=== PATIENT | male | born 1970 | race Caucasian/White ===

== ENCOUNTER 2017-03-31 14:24 | Emergency (ER) | payer MEDICAID, OTHER ==
[2017-03-31] MEDS ORDERED: HYDROcod/ACETAM 5/325 MG TABLET PO STA (14:56)
[2017-03-31] MEDS ORDERED: DEXAMETHASONE 10 MG/ML VIAL PO STA (14:56)
[2017-03-31] MEDS ORDERED: HYDROcod/ACETAM 5/325 MG TABLET ONE (15:10)
[2017-03-31] MEDS ORDERED: DEXAMETHASONE 10 MG/ML VIAL ONE (15:10)
--- NOTE | 2017-03-31 15:21 | XRAY Preliminary Report ---
Exam: XR Chest 2 View PA/LAT IMPRESSION: Normal 2-view chest radiography. [facility] SITE ID: [id number]
--- NOTE | 2017-03-31 15:24 | XRAY Report ---
EXAM: CHEST RADIOGRAPHY EXAM DATE: 03/31/2017 03:13 PM. CLINICAL HISTORY: Right scapular/neck pain. COMPARISON: None. TECHNIQUE: 2 views. FINDINGS: Lungs/Pleura: No focal opacities evident. No pleural effusion. No pneumothorax. Normal volumes. Mediastinum: Heart and mediastinal contours are unremarkable. Other: None. IMPRESSION: Normal 2-view chest radiography. [facility] Referring Provider Line: [phone] SITE ID: [id number]
[2017-03-31] MEDS ORDERED: HYDROmorphone 1 MG/ML SYRINGE IM STA (16:08)
[2017-03-31] MEDS ORDERED: KETOROLAC 60 MG/2 ML VIAL IM STA (16:08)
[2017-03-31] MEDS ORDERED: KETOROLAC 30 MG/ML VIAL ONE (16:18)
[2017-03-31] MEDS ORDERED: HYDROmorphone 1 MG/ML SYRINGE ONE (16:18)
--- NOTE | 2017-03-31 16:47 | ED Physician Documentation ---
PD HPI BACK PAIN - Stated complaint Stated Complaint: BACK/NECK PX - Chief complaint Chief Complaint: Back Pain - History obtained from History obtained from: Patient - History of Present Illness Timing - onset: How many days ago (10) Timing - duration: Days (10) Timing - details: Gradual onset, Still present (worse the past couple of days, without noted particular injury. No rash nor sores. No URI symptoms. Pain in right lower neck and scapular area on right. Worse with neck and shoulder movement, sometimes with deep breathing.), Waxing and waning Location: Upper, Right Quality: Pain, Sharp. No: Tearing Associated symptoms: No: Fever, Weakness, Numbness Improves with: Rest Worsened by: Movement. No: Palpation Contributing factors: No: Trauma Similar symptoms before: Has not had sx before Recently seen: Clinic (yesterday and Rx Methocarbamol and has continued Ibuprofen.) Review of Systems Constitutional: denies: Fever, Chills Nose: denies: Rhinorrhea / runny nose, Congestion Throat: denies: Sore throat Cardiac: denies: Chest pain / pressure, Palpitations Respiratory: denies: Dyspnea, Cough GI: denies: Nausea, Vomiting, Diarrhea Skin: denies: Rash, Lesions Neurologic: denies: Focal weakness, Numbness PD PAST MEDICAL HISTORY - Past Medical History Past Medical History: Yes Cardiovascular: None Respiratory: None Neuro: None Endocrine/Autoimmune: None Psych: Anxiety Musculoskeletal: None - Past Surgical History Past Surgical History: No - Present Medications Home Medications: Ambulatory Orders Medication Instructions Recorded Confirmed Dexamethasone [Decadron] 4 mg PO DAILY #5 tablet 03/31/17 FLUoxetine [PROzac] 10 mg PO DAILY 03/31/17 03/31/17 HYDROcod/ACETAM 5/325 [Gardner 5/325] 1 tab PO Q6H PRN #20 tablet 03/31/17 Methocarbamol 750 mg PO TID 03/31/17 03/31/17 Ranitidine HCl [Zantac] 50 mg PO PRN PRN 03/31/17 03/31/17 - Allergies Allergies/Adverse Reactions: Allergies Allergy/AdvReac Type Severity Reaction Status Date / Time No Known Drug Allergies Allergy Verified 03/31/17 14:31 - Social History Does the pt smoke?: No Smoking Status: Never smoker Does the pt drink ETOH?: No Does the pt have substance abuse?: No - Immunizations Immunizations are current?: Yes - POLST Patient has POLST: No PD ED PE NORMAL - Vitals Vital signs reviewed: Yes - General General: Alert and oriented X 3, Well developed/nourished - HEENT HEENT: Atraumatic - Neck Neck: Supple, no meningeal sign, No bony TTP, No adenopathy - Cardiac Cardiac: RRR, No murmur - Respiratory Respiratory: Clear bilaterally - Abdomen Abdomen: Soft, Non tender - Back Back: No spinal TTP (pain is scapular upper area but without focal tenderness to palpation, no trigger points. ) - Derm Derm: Normal color, Warm and dry, No rash - Neuro Neuro: Alert and oriented X 3, No motor deficit, No sensory deficit Results - Vitals Vitals: Vital Signs - 24 hr 03/31/17 03/31/17 03/31/17 14:29 16:00 17:12 Temperature 36.7 C 36.2 C L Heart Rate 69 66 67 Respiratory 14 20 18 Rate Blood Pressure 120/75 117/73 123/82 H O2 Saturation 100 100 99 Oxygen O2 Source Room air - Rads (name of study) chest Radiology: Prelim report reviewed, EMP read contemporaneously (normal) PD MEDICAL DECISION MAKING - ED course Complexity details: re-evaluated patient (PO meds not helping, and then given IM med with better improvement. ), considered differential (pain in scapular area, worse with movement and deep breathing, but no focal tenderness. No rash. Presume muscular. lungs and CXR are clear. ), d/w patient Departure - Departure Disposition: 01 Home, Self Care Clinical Impression: Acute thoracic back pain Qualifiers: Back pain laterality: right Qualified Code(s): M54.6 - Pain in thoracic spine Condition: Stable Record reviewed to determine appropriate education?: Yes Instructions: ED Neck Back Pain General Follow-Up: Galen Razo MD [Primary Care Provider] - Prescriptions: Dexamethasone [Decadron] 4 mg PO DAILY #5 tablet HYDROcod/ACETAM 5/325 [Gardner 5/325] 1 tab PO Q6H PRN #20 tablet PRN Reason: Pain Comments: Continue some ibuprofen 400-600 mg 2-3 times a day with food. Also use Decadron daily for 5 more days as an other anti-inflammatory. Continue the methocarbamol 3 times a day for muscle spasms and stiffness. Add Tylenol or hydrocodone 1-2 every 6 hours if needed. Recheck if not improving over the next few days or if other symptoms develop. Discharge Date/Time: 03/31/17 17:12
[2017-03-31 17:14] VITALS: BP 123/82
== END 2017-03-31 17:12 | disposition home or self-care (01) ==
LOC: ED 14:24
DX: M54.6 Pain in thoracic spine (principal); M54.2 Cervicalgia
CPT/HCPCS: 71020; 96372; 99283; 99284; A9270; J1170

== ENCOUNTER 2017-04-09 14:03 | Outpatient (CLI) | payer OTHER ==
[2017-04-09 14:29] LABS: CALCIUM 9.5 mg/dL (8.5-10.3); CREATININE 1.1 mg/dL (0.6-1.2); POTASSIUM 4.1 mmol/L (3.5-5.0)
== END 2017-04-09 14:04 | disposition home or self-care (01) ==
LOC: LAB 14:03
PROVIDERS: ATTEND Specialist
DX: M99.01 Segmental and somatic dysfunction of cervical region (principal)
CPT/HCPCS: 36415; 80048

== ENCOUNTER 2017-04-10 07:50 | Outpatient (CLI) | payer OTHER ==
[2017-04-10] MEDS ORDERED: GADOBUTROL 10 MMOL/10 ML VIAL IVP ONE (08:56)
--- NOTE | 2017-04-10 10:31 | MRI Preliminary Report ---
Exam: MRI Cervical Spine W/WO Impression: 1. There is a small disk osteophyte complex that is left paracentral and left foraminal space produci ng a mild degree of flattening of the left hemicord at T4-T5. This produces a mild central canal sten osis. 2. There is a minimal central protrusion of the disk producing a minimal central canal stenosis at T6 -T7. 3. There is a small central extrusion of the disk at T1-T2 with annular tear abutting the sac produci ng mild flattening of the spinal cord in a mild central canal stenosis. 4. There is a broad based disk osteophyte complex eccentric to the right at C5-C6 with superimposed u ncovertebral hypertrophy. There is severe right foraminal stenosis from uncovertebral hypertrophy. Re commend correlation for right C6 radiculopathy. There is a moderate central canal stenosis. 5. There is a mild central canal stenosis at C6-C7 from small disk osteophyte complex. 6. There are minimal central canal stenoses at C3-C4 and C4-C5 from small central protrusions of the disk. SITE ID: [id number]
--- NOTE | 2017-04-10 11:11 | MRI Report ---
EXAM: MRI CERVICAL AND THORACIC SPINE WITHOUT AND WITH CONTRAST EXAM DATE: 04/10/2017 09:19 AM. CLINICAL HISTORY: Cervical pain and thoracic pain. Right-sided neck pain. COMPARISON: None. TECHNIQUE: Multiplanar, multisequence T1-weighted and fluid-sensitive sequences of the cervical spine before and after administration of intravenous contrast. IV contrast: 10 mL Gadavist. Other: None. FINDINGS: MRI OF THE CERVICAL SPINE WITHOUT AND WITH CONTRAST: There is straightening of the normal cervical lordosis. There is a 1 mm retrolisthesis of C5 on C6. T here is a moderate decrease in the height of the disk at C5-C6. There is mild desiccation of the disk spaces from C3-C4 through C6-C7. There are multiple disk bulges or disk osteophyte complexes through out the cervical spine. There are normal signal intensities within the cervical spinal cord. There is no suspicious adenopathy by size criteria within the deep cervical or the spinal accessory chains. T he supraglottis, glottis and subglottis are unremarkable. There is minimal Modic type I endplate degenerative change within the C5-C6 endplates. The craniocervical junction is normal. C2-C3: There is mild to moderate left facet arthropathy. There is mild to moderate narrowing of the l eft neural foramen. There is no significant central canal stenosis. C3-C4: There is a small central protrusion of the disk producing minimal central canal stenosis. Ther e is mild left facet arthropathy. There is moderate narrowing of the left neural foramen. C4-C5: There is a small central protrusion of the disk producing a minimal central canal stenosis. Th e uncovertebral hypertrophy produces moderate right and mild left neural foraminal narrowing. The fac ets are normal. C5-C6: There is a broad-based disk osteophyte complex eccentric to the right with superimposed uncove rtebral hypertrophy. There is severe narrowing of the right neural foramen. Recommend correlation for right C6 radiculopathy. There is mild ligamentum flavum hypertrophy. There is a moderate central can al stenosis. The facets are normal. C6-C7: There is a small disk osteophyte complex with annular tear abutting the sac producing a mild c entral canal stenosis. The uncovertebral hypertrophy produces moderate bilateral foraminal stenosis. The facets are normal. C7-T1: There is mild narrowing of the neural foramina bilaterally from uncovertebral hypertrophy. The facets are normal. There is no significant central canal stenosis. The postcontrast T1-weighted images are normal within the cervical spine. MRI OF THE THORACIC SPINE WITHOUT AND WITH CONTRAST: There is normal alignment of the thoracic spine. There is a mild degree of endplate spondylosis and s yndesmophyte formation throughout the thoracic spine. There are multiple disk bulges which will be de scribed in greater detail below. There is a minimal decrease in the height of the disk at T8-T9 and T9-T10. There are normal signal in tensities within the thoracic spinal cord. The conus terminates below L1. There is no significant atr ophy of the paraspinal musculature or the psoas musculature. The axial images provided only cover T1- T2 through T6-T7. T1-T2: There is a small central extrusion of the disk with annular tear abutting the sac producing mi ld flattening of the spinal cord and a mild central canal stenosis. The facets are normal. There is m ild left foraminal stenosis. There is mild right foraminal stenosis. T2-T3: There is no significant disk bulge, central or foraminal stenosis. The facets are normal. T3-T4: There is no significant disk bulge, central or foraminal stenosis. The facets are normal. T4-T5: There is a small disk osteophyte complex that is left paracentral and left foraminal space pro ducing a mild degree of flattening of the left hemicord and a mild central canal stenosis. There is m ild narrowing of the left neural foramen. The facets are normal. T5-T6: There is no significant disk bulge, central or foraminal stenosis. The facets are normal. T6-T7: There is a minimal central protrusion of the disk producing a minimal central canal stenosis. The remainder of the level is normal. The postcontrast T1-weighted images are normal. IMPRESSION: 1. There is a small disk osteophyte complex that is left paracentral and left foraminal space produci ng a mild degree of flattening of the left hemicord at T4-T5. This produces a mild central canal sten osis. 2. There is a minimal central protrusion of the disk producing a minimal central canal stenosis at T6 -T7. 3. There is a small central extrusion of the disk at T1-T2 with annular tear abutting the sac produci ng mild flattening of the spinal cord and a mild central canal stenosis. 4. There is a broad-based disk osteophyte complex eccentric to the right at C5-C6 with superimposed u ncovertebral hypertrophy. There is severe right foraminal stenosis from uncovertebral hypertrophy. Re commend correlation for right C6 radiculopathy. There is a moderate central canal stenosis. 5. There is a mild central canal stenosis at C6-C7 from small disk osteophyte complex. 6. There are minimal central canal stenoses at C3-C4 and C4-C5 from small central protrusions of the disk. Referring Provider Line: [phone] SITE ID: [id number]
== END 2017-04-10 07:51 | disposition home or self-care (01) ==
LOC: DI 07:50
PROVIDERS: ATTEND Specialist
DX: M25.78 Osteophyte, vertebrae (principal); M48.04 Spinal stenosis, thoracic region; M51.24 Other intervertebral disc displacement, thoracic region; M48.02 Spinal stenosis, cervical region; M54.12 Radiculopathy, cervical region; M50.21 Other cervical disc displacement, high cervical region; M47.892 Other spondylosis, cervical region
CPT/HCPCS: 72156; 72157; A9585

== ENCOUNTER 2019-02-25 15:26 | Emergency (ER) | payer OTHER, BC ==
[2019-02-25 15:49] VITALS: BP 129/90
--- NOTE | 2019-02-25 17:28 | ED Physician Documentation ---
PD HPI UPPER EXT INJURY - Stated complaint Stated Complaint: SPLINTERS IN FINGERS/LT HAND - Chief complaint Chief Complaint: Ext Problem - History obtained from History obtained from: Patient, Family - History of Present Illness Location: Right, Finger (3rd and 2nd fingers) Where injury occurred: Work Timing - onset: How many hours ago (2) Timing - duration: Hours Timing - details: Abrupt onset Improved by: Meds (ibuprofen) Worsened by: Palpating Associated symptoms: No: Weakness, Numbness, Tingling, Swelling Contributing factors: Work related. No: Anticoagulated, Prior ortho surgery, Prosthetic joint Similar symptoms before: Has not had sx before Recently seen: Not recently seen - Treatment prior to arrival Treatment prior to arrival: ibuprofen - Additonal information Additional information: Pt reports he was picking up a box and felt like he got a splinter in his fingers. Never saw the splinter Review of Systems Ten Systems: 10 systems reviewed and negative Constitutional: denies: Fever Skin: reports: Other (mild abrasion to fingertip) Musculoskeletal: reports: Extremity pain (pain in fingers of R hand (2nd and third)) Neurologic: denies: Focal weakness, Numbness Immunocompromised: reports: Reviewed and negative PD PAST MEDICAL HISTORY - Past Medical History Past Medical History: Yes Cardiovascular: None Respiratory: None Endocrine/Autoimmune: None Psych: Anxiety Musculoskeletal: None - Past Surgical History Past Surgical History: No - Present Medications Home Medications: Ambulatory Orders Medication Instructions Recorded Confirmed HYDROcod/ACETAM 5/325 [Chana 5/325] 1 tab PO Q6H PRN #20 tablet 03/31/17 RX: FLUoxetine [PROzac] 10 mg PO DAILY 03/31/17 03/31/17 RX: Methocarbamol 750 mg PO TID 03/31/17 03/31/17 Ranitidine HCl [Zantac] 50 mg PO PRN PRN 03/31/17 03/31/17 dexAMETHasone [Decadron] 4 mg PO DAILY #5 tablet 03/31/17 - Allergies Allergies/Adverse Reactions: Allergies Allergy/AdvReac Type Severity Reaction Status Date / Time No Known Drug Allergies Allergy Verified 03/31/17 14:31 - Social History Does the pt smoke?: No Smoking Status: Never smoker Does the pt drink ETOH?: No Does the pt have substance abuse?: No - Immunizations Immunizations are current?: Yes - POLST Patient has POLST: No PD ED PE NORMAL - Vitals Vital signs reviewed: Yes - General General: Alert and oriented X 3, No acute distress - HEENT HEENT: Atraumatic - Neck Neck: Supple, no meningeal sign - Cardiac Cardiac: RRR - Respiratory Respiratory: No respiratory distress - Abdomen Abdomen: Non distended - Male Male : Deferred - Rectal Rectal: Deferred - Derm Derm: Other (no swelling, no redness) - Extremities Extremities: No deformity, No edema, Other (mild tenderness over R 2nd and 3rd f ingertips, no deformity, very small abraded fingertip, no foreign body visible) - Neuro Neuro: Alert and oriented X 3 Eye Opening: Spontaneous Motor: Obeys Commands Verbal: Oriented GCS Score: 15 - Psych Psych: Normal mood, Normal affect Results - Vitals Vitals: Vital Signs - 24 hr 02/25/19 15:45 Temperature 36.9 C Heart Rate 70 Respiratory 16 Rate Blood Pressure 129/90 H O2 Saturation 96 Oxygen O2 Source Room air PD MEDICAL DECISION MAKING - ED course Complexity details: considered differential, d/w patient ED course: ddx- abrasion, laceration, contusion, foreign body 48 y/o M with possible splinters reported in fingers. None visible on exam, normal exam except for minor tenderness at fingertip overlying very small area of abraded tissue. No deformity. Continue supportive care at home. I do not feel emergent imaging is indicated at this time. Departure - Departure Disposition: 01 Home, Self Care Clinical Impression: Pain in finger of right hand Condition: Stable Record reviewed to determine appropriate education?: Yes Follow-Up: Stephen Abreu MD [Primary Care Provider] - Comments: You were evaluated in [facility] ED today for a splinter in your finger. There was no splinter seen on examination. If you continue to have pain you should try warm soaks and ibuprofen or tylenol. Return to the ED if you develop redness, swelling or increased pain or fever. Forms: Activity restrictions Discharge Date/Time: 02/25/19 17:37
== END 2019-02-25 17:37 | disposition home or self-care (01) ==
LOC: ED 15:26
DX: M79.644 Pain in right finger(s) (principal); S60.419A Abrasion of unspecified finger, initial encounter; W22.8XXA Striking against or struck by other objects, initial encounter; Y93.89 Activity, other specified; Y99.0 Civilian activity done for income or pay
CPT/HCPCS: 99281

== ENCOUNTER 2021-10-29 11:59 | Outpatient (CLI) | payer BC ==
[2021-10-29 12:17] LABS: BASOPHILS % (AUTO) 0.7 %; EOSINOPHILS # (AUTO) 0.2 10^3/uL (0.0-0.7); EOSINOPHILS % (AUTO) 3.7 %; HCT - HEMATOCRIT 46.3 % (42.0-52.0); HGB - HEMOGLOBIN 15.1 g/dL (14.0-18.0); LYMPHOCYTES % (AUTO) 24.4 %; MEAN CORPUSCULAR HEMOGLOBIN 30.1 pg (27.0-31.0); MEAN CORPUSCULAR HGB CONC 32.6 g/dL (32.0-36.0); MEAN CORPUSCULAR VOLUME 92.4 fL (80.0-94.0); MEAN PLATELET VOLUME 10.5 fL (7.4-11.4); MONOCYTES # (AUTO) 0.4 10^3/uL (0.0-1.0); MONOCYTES % (AUTO) 8.8 %; NEUTROPHILS # (AUTO) 2.6 10^3/uL (1.5-6.6); NEUTROPHILS % (AUTO) 62.2 %; PLT - PLATELET COUNT 247 10^3/uL (130-450); RED BLOOD COUNT 5.01 10^6/uL (4.70-6.10); WHITE BLOOD COUNT 4.1 x10^3/uL (4.8-10.8)
[2021-10-29 12:33] LABS: ALBUMIN 4.3 g/dL (3.2-5.5); ALBUMIN/GLOBULIN RATIO 1.2 (1.0-2.2); ALKALINE PHOSPHATASE 17 IU/L (42-121); ALT ALANINE AMINOTRANSFERASE 79 IU/L (10-60); AST ASPARTATE AMINOTRANSFERASE 44 IU/L (10-42); BILIRUBIN,TOTAL 1.3 mg/dL (0.2-1.0); BUN - BLOOD UREA NITROGEN 16 mg/dL (6-20); CARBON DIOXIDE - CO2 29 mmol/L (21-32); CHLORIDE 98 mmol/L (101-111); CHOL/HDL RATIO 3.7 (<5.0); CHOLESTEROL 178 mg/dL; GFR - MDRD 78 (>89); GLUCOSE 111 mg/dL (70-100); HDL CHOLESTEROL 48 mg/dL; LDL CHOLESTEROL,CALCULATED 113 mg/dL; LDL/HDL RATIO 2.4 (<3.6); SODIUM 136 mmol/L (135-145); TOTAL PROTEIN 7.9 g/dL (6.7-8.2); TRIGLYCERIDES 83 mg/dL; VLDL CHOLESTEROL 17 mg/dL
[2021-10-29 12:44] LABS: THYROID STIMULATING HORMONE 1.1 uIU/mL (0.34-5.60)
== END 2021-10-29 12:00 | disposition home or self-care (01) ==
LOC: LAB 11:59
PROVIDERS: ATTEND Family Medicine
DX: M54.50 Low back pain, unspecified (principal); G89.29 Other chronic pain; F41.9 Anxiety disorder, unspecified; M48.061 Spinal stenosis, lumbar region without neurogenic claudication
CPT/HCPCS: 36415; 80053; 80061; 82607; 83721; 84443; 85025

== ENCOUNTER 2021-11-30 11:28 | Outpatient (CLI) | payer BC ==
--- NOTE | 2021-11-30 16:23 | Ultrasound Report ---
PROCEDURE: Abdomen Limited INDICATIONS: ELEVATED LIVER ENZYMES TECHNIQUE: Real-time scanning was performed of the right abdomen, with image documentation. COMPARISON: None. FINDINGS: Liver: Upper limits of normal in size measuring 17.8 cm. Increased in echogenicity. Focal fatty spari ng adjacent to the gallbladder. Portal vein demonstrates hepatopedal flow. Gallbladder: Gallbladder is nondistended. No stones or sludge. No gallbladder wall thickening. No per icholecystic fluid. Negative sonographic Ulloa sign. Biliary ducts: Intrahepatic bile ducts are non-dilated. Extrahepatic bile duct caliber measures 2 m m. Normal is 6-7 mm or less in diameter, or 10 mm or less post-cholecystectomy. Pancreas: Visualized portions of the pancreas are sonographically normal. Right kidney measures 12.7 cm. Cortex 1.5 cm. No hydronephrosis. IMPRESSION: 1. Prominent liver size. Increased echogenicity of the hepatic parenchyma. This is most commonly seen in hepatic steatosis. Other forms of hepatocellular disease could have a similar appearance. 2. No acute cholecystitis. No gallstones. Reviewed by: Chris Shaffer MD on 11/30/2021 4:22 PM PDT Approved by: Chris Shaffer MD on 11/30/2021 4:22 PM PDT Station ID: [id number]
== END 2021-11-30 11:29 | disposition home or self-care (01) ==
LOC: DI 11:28
PROVIDERS: ATTEND Family Medicine
DX: R74.8 Abnormal levels of other serum enzymes (principal); R16.0 Hepatomegaly, not elsewhere classified

== ENCOUNTER 2022-10-16 15:08 | Outpatient (CLI) | payer BC ==
[2022-10-16 15:48] LABS: BASOPHILS % (AUTO) 0.6 %; EOSINOPHILS # (AUTO) 0.2 10^3/uL (0.0-0.7); EOSINOPHILS % (AUTO) 3.7 %; HCT - HEMATOCRIT 45.7 % (42.0-52.0); HGB - HEMOGLOBIN 14.8 g/dL (14.0-18.0); LYMPHOCYTES # (AUTO) 1.2 10^3/uL (1.5-3.5); LYMPHOCYTES % (AUTO) 24.9 %; MEAN CORPUSCULAR HEMOGLOBIN 30.2 pg (27.0-31.0); MEAN CORPUSCULAR HGB CONC 32.4 g/dL (32.0-36.0); MEAN CORPUSCULAR VOLUME 93.3 fL (80.0-94.0); MEAN PLATELET VOLUME 10.6 fL (7.4-11.4); MONOCYTES # (AUTO) 0.5 10^3/uL (0.0-1.0); MONOCYTES % (AUTO) 9.8 %; NEUTROPHILS % (AUTO) 60.8 %; PLT - PLATELET COUNT 247 10^3/uL (130-450); RED CELL DISTRIBUTION WIDTH 12.8 % (12.0-15.0); WHITE BLOOD COUNT 4.9 x10^3/uL (4.8-10.8)
[2022-10-16 15:59] LABS: ALBUMIN 4.3 g/dL (3.2-5.5); ALBUMIN/GLOBULIN RATIO 1.1 (1.0-2.2); ALKALINE PHOSPHATASE 17 IU/L (42-121); ALT ALANINE AMINOTRANSFERASE 73 IU/L (10-60); AST ASPARTATE AMINOTRANSFERASE 43 IU/L (10-42); BILIRUBIN,TOTAL 0.7 mg/dL (0.2-1.0); BUN - BLOOD UREA NITROGEN 17 mg/dL (6-20); CALCIUM 9.3 mg/dL (8.5-10.3); CARBON DIOXIDE - CO2 29 mmol/L (21-32); CHLORIDE 98 mmol/L (101-111); CHOL/HDL RATIO 4.6 (<5.0); CHOLESTEROL 190 mg/dL; CREATININE 0.9 mg/dL (0.6-1.2); GFR - MDRD 88 (>89); GLUCOSE 110 mg/dL (70-100); HDL CHOLESTEROL 41 mg/dL; LDL CHOLESTEROL,CALCULATED 104 mg/dL; LDL/HDL RATIO 2.5 (<3.6); POTASSIUM 3.9 mmol/L (3.5-5.0); SODIUM 135 mmol/L (135-145); TOTAL PROTEIN 8.1 g/dL (6.7-8.2); TRIGLYCERIDES 225 mg/dL; VLDL CHOLESTEROL 45 mg/dL
[2022-10-16 16:10] LABS: THYROID STIMULATING HORMONE 2.2 uIU/mL (0.34-5.60)
== END 2022-10-16 15:09 | disposition home or self-care (01) ==
LOC: LAB 15:08
PROVIDERS: ATTEND Registered Nurse
DX: Z79.899 Other long term (current) drug therapy (principal); Z13.220 Encounter for screening for lipoid disorders; Z12.5 Encounter for screening for malignant neoplasm of prostate; Z13.29 Encounter for screening for other suspected endocrine disorder
CPT/HCPCS: 36415; 80053; 80061; 83721; 84153; 84443; 85025

== ENCOUNTER 2023-02-18 21:33 | Emergency (ER) | payer BC ==
[2023-02-18 21:40] VITALS: BP 130/80
--- NOTE | 2023-02-18 22:03 | ED Physician Documentation ---
PD HPI BACK PAIN - Stated complaint Stated Complaint: LOW NECK PX - Chief complaint Chief Complaint: General - History obtained from History obtained from: Patient - Additional information Additional information: Patient is a 52-year-old male presenting for evaluation of right upper back pain that he believes has been present for approximately 6 weeks.He states that it is felt worse in the last 1 week or so. He has tried ghin-cmw-mdeohil acetaminophen ibuprofen without any improvement. The pain is worse with certain movements and positions.He denies any known trauma or injury. Pain does not ra diate elsewhere.He denies fever, IV drug use, injections into the back, known cancer.Denies weakness in the upper or lower extremities. No bowel or bladder incontinence. No saddle anesthesia. Review of Systems Constitutional: denies: Fever Cardiac: denies: Chest pain / pressure Respiratory: denies: Dyspnea GI: denies: Abdominal Pain Musculoskeletal: reports: Back pain. denies: Extremity pain Neurologic: denies: Headache PD PAST MEDICAL HISTORY - Past Medical History Cardiovascular: None Respiratory: None Endocrine/Autoimmune: None Psych: Anxiety Musculoskeletal: None - Past Surgical History Past Surgical History: No - Present Medications Home Medications: Ambulatory Orders Medication Instructions Recorded Confirmed Cyclobenzaprine [Flexeril] 10 mg PO TID PRN #20 tablet 02/18/23 Lidocaine Patch 5% [Lidoderm Patch] 1 patch TOP DAILY PRN #10 patch 02/18/23 PARoxetine HCL [Paxil] 30 mg PO DAILY 02/18/23 02/18/23 - Allergies Allergies/Adverse Reactions: Allergies Allergy/AdvReac Type Severity Reaction Status Date / Time No Known Drug Allergies Allergy Verified 02/18/23 21:37 - Social History Does the pt smoke?: No Smoking Status: Never smoker Does the pt drink ETOH?: No Does the pt have substance abuse?: No - Immunizations Immunizations are current?: Yes - POLST Patient has POLST: No PD ED PE NORMAL - General General: Alert and oriented X 3, No acute distress, Well developed/nourished - HEENT HEENT: Atraumatic, Moist mucous membranes, Pharynx benign - Cardiac Cardiac: RRR, No murmur, Strong equal pulses - Respiratory Respiratory: No respiratory distress, Clear bilaterally - Abdomen Abdomen: Soft, Non tender - Back Back: No spinal TTP - Derm Derm: Warm and dry - Extremities Extremities: No deformity, Normal ROM s pain, Other (Normal strength with shoulder extension, arm flexion and extension, wrist extension and hand grasp) - Neuro Neuro: Alert and oriented X 3, fisher hand line 2-12 intact, No motor deficit, No sensory deficit, Normal speech PD ED PE EXPANDED - Back Back visual: 1 - tenderness (spasm) Results - Vitals Vitals: Vital Signs - 24 hr 02/18/23 21:37 Temperature 36.5 C Heart Rate 78 Respiratory 16 Rate Blood Pressure 130/80 O2 Saturation 96 Oxygen O2 Source Room air PD Medical Decision Making - ED course ED course: Patient presenting for evaluation of upper thoracic pain which has been present for several weeks.Vital signs are stable. No trauma. No red flag signs or symptoms in regards to back pain.Strength and sensation appear to be preserved. Good pulses in all extremities. No exam findings to suggest cord compression. No midline tenderness. Patient does have visible spasm to right upper thoracic region and the location of his pain. No known risk factors for epidural abscess or hematoma.Discussed plan for continued supportive care as well as need for close follow-up with PCP. Patient is advised on strict return precautions for any worsening symptoms. Departure - Departure Disposition: 01 Home, Self Care Clinical Impression: Acute thoracic back pain Condition: Stable Instructions: ED Spasm Back No Trauma Prescriptions: Cyclobenzaprine [Flexeril] 10 mg PO TID PRN #20 tablet PRN Reason: Spasms Lidocaine Patch 5% [Lidoderm Patch] 1 patch TOP DAILY PRN #10 patch PRN Reason: pain Comments: You appear to have a muscle spasm in the right upper thoracic region. Going to start you on a muscle relaxer called Flexeril. Please continue with anti- inflammatory such as ibuprofen or acetaminophen. I will also [facility] a [facility] Please use these medications as directed. I would also recommend close follow-up with your primary care provider given the duration of your symptoms. If you develop any new symptoms such as fever, chest pain, weakness or any new concerns please return to the emergency department. Discharge Date/Time: 02/18/23 22:21
[2023-02-18] MEDS: CYCLOBENZAPRINE 10 MG Prepack 2 PO PRN (22:18)
[2023-02-18] MEDS: LIDOCAINE PATCH 5% TOP STA (22:18)
== END 2023-02-18 22:21 | disposition home or self-care (01) ==
LOC: ED 21:33
DX: M54.6 Pain in thoracic spine (principal)
CPT/HCPCS: 99282; 99283; A9270

== ENCOUNTER 2023-02-20 11:52 | Outpatient (CLI) | payer BC ==
--- NOTE | 2023-02-21 03:07 | XRAY Report ---
PROCEDURE: Thoracic Spine 3 View INDICATIONS: THORACIC BACK PAIN TECHNIQUE: 3 views of the thoracic spine were acquired. COMPARISON: None. FINDINGS: Bones: No fractures or subluxation. There is mild multilevel degenerative disc disease throughout th e thoracic spine. No suspicious bony lesions. 12 pairs of ribs are noted, and appear intact where vi sualized. Soft tissues: No paravertebral stripe thickening. IMPRESSION: 1. No fracture or subluxation. 2. Mild multilevel degenerative disc disease. Reviewed by: Santos Khanna MD on 02/21/2023 3:05 AM PDT Approved by: Santos Khanna MD on 02/21/2023 3:05 AM PDT Station ID: [id number]
== END 2023-02-20 23:59 | disposition home or self-care (01) ==
LOC: DI.N 11:52
PROVIDERS: ATTEND Nurse Practitioner
DX: M51.34 Other intervertebral disc degeneration, thoracic region (principal)

== ENCOUNTER 2024-02-20 15:53 | Outpatient (CLI) | payer BC, MEDICAID ==
--- NOTE | 2024-02-20 21:55 | XRAY Report ---
PROCEDURE: Shoulder 2+V LT INDICATIONS: PAIN IN LEFT SHOULDER TECHNIQUE: 3 views of the shoulder were acquired. COMPARISON: None. FINDINGS: Bones: No fractures or dislocations. No suspicious bony lesions. Visualized ribs appear intact. Soft tissues: No suspicious soft tissue calcifications. The visualized lungs are within normal limi ts. Chondrocalcinosis is present. IMPRESSION: No visualized acute fracture or dislocation. However, occult injury cannot be excluded. Recommend dalila rt interval imaging follow-up in 7-10 days as clinically indicated for additional evaluation. Reviewed by: Sylvie Aldana MD on 02/20/2024 9:54 PM PDT Approved by: Sylvie Aldana MD on 02/20/2024 9:54 PM PDT Station ID: [id number]
== END 2024-02-20 23:59 | disposition home or self-care (01) ==
LOC: DI.N 15:53
PROVIDERS: ATTEND Nurse Practitioner
DX: M25.512 Pain in left shoulder (principal)